=== PATIENT | male | born 1940 | race Caucasian/White ===

== ENCOUNTER → 2016-07-22 | Outpatient (CLI) | payer MEDICARE ==
[2016-07-22 13:35] LABS: Blood Urea Nitrogen 43 mg/dL (9-20); Non-African American GFR(MDRD) 58 (>60 ml/min/1.73 sqM)
--- NOTE | 2016-07-22 16:42 | CT ---
EXAMINATION TYPE: CT abdomen pelvis w con DATE OF EXAM: 07/22/2016 2:55 PM COMPARISON: NONE INDICATION: Mid abd pain, History of colon and stomach CA, multiple hernia surgeries DLP: 1374.7 mGycm, Automated exposure control for dose reduction was used. CONTRAST: 100 mL of Omnipaque 300. Study performed with Oral Contrast TECHNIQUE: Axial images were obtained from above the diaphragm to the pubic rami in the axial plane a t 5 mm thick sections. Reconstructed images are reviewed on the computer in the coronal plane. FINDINGS: Limited CT sections are obtained the lung bases. The lung bases are clear. CT ABDOMEN: Liver: Normal Spleen: Normal Pancreas: Normal Adrenal glands: The adrenal glands are normal. Gallbladder: Gallstones appear to be layering. Kidneys: No masses are evident. No hydronephrosis is present. Cortical renal cysts present on the l eft kidney. Delayed images were obtained through the kidneys, which remain unremarkable. Aorta: Vascular calcification is within the aorta. Inferior vena cava: Normal. CT PELVIS: Loops of bowel within the abdomen and pelvis are normal. There are loops of bowel which are incom pletely distended or lack oral contrast limiting their evaluation. Midline pelvic herniation is prese nt with multiple loops of bowel present. Contrast is within loops of bowel without evidence of obstru ction or dilatation. A second herniation appears to be just right of midline within the periumbilical region. This contains a loop of bowel containing contrast without evidence of obstruction. Prior abdominal wall hernia repair may be present along the epigastric region. A small seroma may rem ain present. Correlate with the patient's surgical history. Multiple surgical clips deep to this cnostantine ection. This appears to measure 2.5 x 0.6 cm. Appendix: Not identified Urinary bladder: Normal. Genitourinary structures: Osseous structures: No suspicious lytic or sclerotic lesions. Multiple degenerative disc changes at t he lumbar spine. Vacuum disc is present. IMPRESSIONS: 1. Anterior abdominal wall hernias containing loops of bowel without evidence of obstruction. 2. Suspected seroma anterior abdominal wall here superficial to multiple surgical clips in right uppe r quadrant. 3. Cortical renal cyst 4. Gallstones
== END | disposition home or self-care (01) ==
LOC: RADCTMAIN 12:11
PROVIDERS: ATTEND Surgery
DX: K46.9 Unspecified abdominal hernia without obstruction or gangrene (principal); N28.1 Cyst of kidney, acquired; K80.20 Calculus of gallbladder without cholecystitis without obstruction; E66.01 Morbid (severe) obesity due to excess calories; D50.8 Other iron deficiency anemias; E55.9 Vitamin D deficiency, unspecified; Z48.815 Encounter for surgical aftercare following surgery on the digestive system; Z98.84 Bariatric surgery status
CPT/HCPCS: 82565; 84520; 74177; Q9967

== ENCOUNTER → 2016-07-26 | Outpatient (CLI) | payer MEDICARE ==
[2016-07-26 11:28] LABS: HCT 31.7 % (39.0-53.0); HDW 2.24; HGB 10.4 gm/dL (13.0-17.5); MCH 32.8 pg (25.0-35.0); MCHC 32.6 g/dL (31.0-37.0); MCV 100.5 fL (80.0-100.0); Macrocytosis Slight; Mean Platelet Volume 8.1; RBC 3.16 m/uL (4.30-5.90); RDW 14.1 % (11.5-15.5); WBC 3.9 k/uL (3.8-10.6)
[2016-07-26 12:33] LABS: ALT 47 U/L (21-72); AST 42 U/L (17-59); Alkaline Phosphatase 86 U/L (38-126); Anion Gap 8 mmol/L; Blood Urea Nitrogen 35 mg/dL (9-20); Calcium 9.1 mg/dL (8.4-10.2); Carbon Dioxide 27 mmol/L (22-30); Chloride 105 mmol/L (98-107); Cholesterol 169 mg/dL (<200); Glucose 96 mg/dL (74-99); HDL Cholesterol 61 mg/dL (40-60); Iron 64 ug/dL (49-181); Non-African American GFR(MDRD) >60 (>60 ml/min/1.73 sqM); Phosphorous 3.6 mg/dL (2.5-4.5); Potassium 4.3 mmol/L (3.5-5.1); Sodium 140 mmol/L (137-145); Total Bilirubin 0.5 mg/dL (0.2-1.3); Total Protein 6.2 g/dL (6.3-8.2); Triglycerides 67 mg/dL (<150)
[2016-07-26 12:45] LABS: Prealbumin 20 mg/dL (18-36); Total Iron Binding Capacity 298 ug/dL (261-462)
[2016-07-26 13:44] LABS: Vitamin B12 763 pg/mL
[2016-07-31 18:15] LABS: Selenium 162 mcg/L (63-160)
== END | disposition home or self-care (01) ==
LOC: LABWHC1 10:23
PROVIDERS: ATTEND Surgery
DX: D50.8 Other iron deficiency anemias (principal); E55.9 Vitamin D deficiency, unspecified
CPT/HCPCS: 36415; 80053; 80061; 82306; 82525; 82607; 82728; 82746; 83036; 83540; 83550; 83735; 83970; 84100; 84134; 84255; 84425; 84590; 84630; 85027

== ENCOUNTER → 2016-10-13 | Outpatient (CLI) | payer MEDICARE ==
[2016-10-13 17:35] LABS: CH 31.7; CHCM 31.7; HDW 2.36; HGB 10.3 gm/dL (13.0-17.5); MCH 33.4 pg (25.0-35.0); MCHC 33.2 g/dL (31.0-37.0); MCV 100.5 fL (80.0-100.0); Macrocytosis Slight; Mean Platelet Volume 9.4; RBC 3.09 m/uL (4.30-5.90)
[2016-10-13 18:29] LABS: Anion Gap 7 mmol/L; Blood Urea Nitrogen 38 mg/dL (9-20); Carbon Dioxide 28 mmol/L (22-30); Chloride 100 mmol/L (98-107); Non-African American GFR(MDRD) >60 (>60 ml/min/1.73 sqM); Potassium 4.2 mmol/L (3.5-5.1); Sodium 135 mmol/L (137-145)
== END | disposition home or self-care (01) ==
LOC: LABPAT 17:10
PROVIDERS: ATTEND Internal Medicine Interventional Cardiology
DX: Z01.812 Encounter for preprocedural laboratory examination (principal); I70.213 Atherosclerosis of native arteries of extremities with intermittent claudication, bilateral legs
CPT/HCPCS: 80051; 82565; 84520; 85027

== ENCOUNTER 2016-10-15 06:33 | Day surgery (SDC) | payer MEDICARE ==
[2016-10-13 17:44] VITALS: BMI 39.8
[~2016-10-15 06:33] MED LIST: SODIUM CHLORIDE 0.9% 1,000 ML in EMPTY BAG 1 BAG IV ONE
[2016-10-15 07:11] VITALS: TEMP 98.4
[2016-10-15] MEDS ORDERED: ASPIRIN 325 MG TAB PO ONE (07:23)
[2016-10-15] MEDS ORDERED: SODIUM CHLORIDE 0.9% 50 ML IV ONE (07:25)
[2016-10-15] MEDS ORDERED: MIDAZOLAM 2 MG/2 ML VIAL ONE (07:40)
[2016-10-15] MEDS ORDERED: MIDAZOLAM 2 MG/2 ML VIAL IV ONE (07:41)
[2016-10-15] MEDS ORDERED: LIDOCAINE 2% INJ 20 MG/ML SQ ONE (07:50)
[2016-10-15] MEDS ORDERED: IODIXANOL 320 MG/ML 100 ML INTRAARTER ONE (08:27)
[2016-10-15] MEDS ORDERED: SODIUM CHLORIDE 0.9% 1,000 ML IV SCH (08:45)
[2016-10-15 12:41] VITALS: RESP 18
[2016-10-15 13:06] VITALS: BP 142/77; PULSE 82
--- NOTE | 2016-10-15 14:37 | IR ---
EXAMINATION TYPE: IR angio abdominal w runoff DATE OF EXAM: 10/15/2016 8:43 AM CLINICAL HISTORY: Peripheral vascular disease. TECHNIQUE: Fluoroscopy. COMPARISON: None. FINDINGS: Fluoroscopic guidance was provided during abdominal angiogram with lower extremity runoff procedure performed by Dr. Stroud. A total of 5.4 minutes of fluoroscopic time was utilized during the procedure and multiple spot images and cine clips was acquired. Please refer to procedure note for f urther details as I was not present nor performed procedure. IMPRESSION: As Above.
--- NOTE | 2016-10-15 15:42 | LTR ---
October 15, 2016 RE: Deepti Jeferson Dear Brody, Mr. Jeferson Tatum was experiencing bilateral lower extremity discomfort consistent with claudication, and he underwent an CORY which had abnormal results bilaterally. In view of that, he underwent a peripheral angiogram which showed severe PAD involving the left popliteal and right anterior tibial artery. He will be scheduled to undergo a FLOUR INSPECTOR of the left popliteal to start with. I want to thank you for allowing me to participate with his care; please do not hesitate to call with any questions or concerns. Sincerely, JACQUI RODAS MD
--- NOTE | 2016-10-15 16:07 | PCN ---
DATE OF PROCEDURE: October 15, 2016 Performing physician: Mayo Stroud M.D., manager sharepoint. PROCEDURE PERFORMED: 1. An abdominal aortogram. 2. Bilateral lower extremity runoff. 3. Selective left external iliac artery angiogram. 4. Selective right common femoral artery angiogram. INDICATION: This is a very pleasant 76-year-old gentleman who sees Dr. Harry Parnell as an outpatient and Dr. Swift as an outpatient, who was experiencing bilateral lower extremity discomfort consistent with intermittent claudication and he underwent an ankle brachial index which came in to be abnormal bilaterally. He was scheduled to undergo an abdominal aortogram and bilateral for severe underlying PAD. Approach: Right common femoral artery. COMPLICATIONS: None. Level of sedation: Moderate. With sedation length about half an hour. PROCEDURE DESCRIPTION: After obtaining informed consent, the patient was brought to the cardiac medical laboratory scientist. The right common femoral artery was cannulated using micropuncture technique. Micropuncture wire passed easily. Then I placed 5 Montserratian sheath in the right common femoral artery. Subsequently, I did an abdominal aortogram and bilateral lower extremity runoff. I performed that using 5 Montserratian pigtail catheter which was initially placed at the level of the renal arteries and then it was pulled above the bifurcation of the aorta to right and left common iliac arteries. Subsequently, I did select the left external iliac artery using a 5 Montserratian rim catheter with an 0.035 advantage wire and I did injection using straight multihole catheter. The procedure was completed without any complication. SELECTIVE PERIPHERAL ANGIOGRAM: 1. The abdominal aorta is angiographically normal. 2. Common iliac arteries: The right and left common iliac arteries are angiographically normal. 3. External iliac arteries the right and left external iliac arteries are angiographically normal. 4. The internal iliac arteries: The right and left internal iliac arteries are angiographically normal. 5. Common femoral arteries. The right and left common femoral arteries are angiographically normal. PROFUNDA: The right and left profunda are angiographically normal SUPERFICIAL FEMORAL ARTERY: The right SFA appeared to have mild diffuse disease only and the left SFA appeared to have mild disease only as well. Popliteal: The right popliteal did appear to have mild disease only. The left popliteal appeared to have a lesion in the range of 70% to 80%. Below the knee there are vessel runoff below the knee on the right side with 80 and peroneal. The ( ) is occluded. The ( ) on the right side has a lesion appeared to be in the range of 80% to 90%. On the left side there are also two vessel run off what seems to me with AP and peroneal. Opacification of below the knee on the left side was poor and I will address that during intervention on the right popliteal. CONCLUSION: 1. Mild aortoiliac disease. 2. Severe disease involving the popliteal artery. 3. Severe disease involving the right anterior tibial artery. POSTPROCEDURE MANAGEMENT: The patient will be scheduled to undergo a GRASSLAND CONSERVATIONIST of the left popliteal.
== END 2016-10-15 13:50 | disposition home or self-care (01) ==
LOC: CATHCVL 06:33
PROVIDERS: ATTEND Internal Medicine Interventional Cardiology
DX: I70.213 Atherosclerosis of native arteries of extremities with intermittent claudication, bilateral legs (principal); I70.0 Atherosclerosis of aorta; Z87.891 Personal history of nicotine dependence; I10 Essential (primary) hypertension; Z79.82 Long term (current) use of aspirin; Z79.899 Other long term (current) drug therapy
CPT/HCPCS: 36246; 75625; 75716; C1894; C1769 ×4; C1760; J2001; J2250; Q9967

== ENCOUNTER 2016-10-29 08:04 | Day surgery (SDC) | payer MEDICARE ==
[~2016-10-29 08:04] MED LIST changes: +ALPRAZolam 0.25 MG TAB PO PRN; +ASPIRIN 325 MG TAB PO ONE
[2016-10-29] MEDS: SODIUM CHLORIDE 0.9% 1,000 ML IV SCH ×2 (08:35→19:56)
[2016-10-29] MEDS ORDERED: MIDAZOLAM 2 MG/2 ML VIAL IVP ONE (09:46)
[2016-10-29] MEDS ORDERED: LIDOCAINE 2% INJ 20 MG/ML SQ ONE (09:48)
[2016-10-29] MEDS ORDERED: HEPARIN SODIUM 1,000 UNIT/ML VIAL IV ONE (09:51)
[2016-10-29] MEDS ORDERED: CLOPIDOGREL 75 MG TAB PO ONE (10:22)
[2016-10-29] MEDS: niCARdipine Syringe (1,000 mcg/10 mL) INTRACORON ONE ×2 (10:24→10:27)
[2016-10-29] MEDS: NITROGLYCERIN 1000MCG/10ML SYRINGE INTRAARTER ONE ×2 (10:24→10:27)
[2016-10-29] MEDS ORDERED: IODIXANOL 320 MG/ML 100 ML INTRAARTER ONE (10:35)
[2016-10-29] MEDS ORDERED: HYDROcodone/APAP 10-325MG 1 EACH TAB PO PRN (10:39)
--- NOTE | 2016-10-29 12:41 | IR ---
EXAMINATION TYPE: IR shrimp boat captain femoral popliteal DATE OF EXAM: 10/29/2016 11:04 AM COMPARISON: NONE HISTORY: Peripheral vascular occlusive disease. Fluoroscopy was provided to the referring clinician. See dictated report from cardiology.
--- NOTE | 2016-10-29 17:44 | PCN ---
DATE OF PROCEDURE: October 29, 2016 PERFORMING PHYSICIAN: Mayo Stroud M.D. applications chemist. PROCEDURE PERFORMED: 1. Selective left [id number] angiogram. 2. Selective left popliteal angiogram. 3. Atherectomy of the left popliteal artery using the turbo hock device. 4. Atherectomy of the left popliteal artery using the turbo hock device with extraction of significant amount of plaque. 5. Successful balloon angioplasty of the left popliteal using 5.0 x 60 mm drug-coated balloon with a good angiographic results. 6. Selective right common femoral artery angiogram. INDICATION: This is a pleasant 76-year-old gentleman who sees Dr. Harry Parnell and Dr. Swift as an outpatient, who was experiencing bilateral lower extremity discomfort consistent with intermittent claudication. He underwent a peripheral angiogram a few weeks ago and that showed severe left popliteal artery and severe right anterior tibial artery. He was brought today to undergo a HOME APPLIANCES MECHANIC of the left popliteal. Approach: Right common femoral artery. COMPLICATIONS: None. LEVEL OF SEDATION: Moderate with sedation length of about an hour. PROCEDURE DESCRIPTION: After obtaining an informed consent, the patient was brought to the cardiac woven label designer. Right common femoral artery was cannulated using micropuncture technique. The micropuncture wire passed easily, then I placed an 11 cm 6 Beninese sheath in the right common femoral artery. Subsequently, I did start anticoagulation using heparin and the patient was given a total of 10,000 units of heparin IV. After that, I did select the left SFA using an 0.035 advantage wire with the back-up support of 5 Beninese rim catheter. After that, I did exchange my 11 cm 6 Beninese sheath into 55 cm 6 Beninese Rabi sheath over the advantage wire and the sheath was positioned in the proximal left SFA. At that point, I did selective left [id number] angiogram and selective left popliteal angiogram as well. After that, I exchanged my 0.035 advantage wire into 0.014 advantage wire using an 0.035 CXI catheter. Subsequently, I did multiple runs of directional atherectomy using the CXI using the Turbo hock device and I was able to extract a significant amount of plaque from the left popliteal artery. After that, I did balloon angioplasty initially using 4.0 x 60 and then 5.0 x 6 mm drug-coated balloon, where the balloon was positioned under fluoroscopy guidance and inflated for 3 minutes. The following angiogram showed good angiographic results. I did completion angiogram for below the knee on the left side and that showed the same findings as before. After that, I did exchange my 55 cm sheath into 11 cm sheath using an 0.035 advantage wire. Finally, I did selective right common femoral artery angiogram. I did close the groin using the Perclose device. The procedure was completed without any complication. POSTPROCEDURE MANAGEMENT: 1. Dual antiplatelet therapy. 2. Risk factor medications. 3. HOME APPLIANCES MECHANIC of the right anterior tibial artery down the line.
--- NOTE | 2016-10-29 17:46 | LTR ---
October 29, 2016 RE: Deepti Jeferson Dear Brody: Mr. Jeferson Tatum underwent successful atherectomy and balloon angioplasty of the left popliteal with a good angiographic result and without any complication. I want to thank you for allowing me to participate in his care and please do not hesitate to call for any question or concerns. Sincerely, JACQUI RODAS MD
[2016-10-29] MEDS: COLCHICINE 0.6 MG TAB PO SCH (19:55)
[2016-10-29] MEDS ORDERED: PRAVASTATIN SODIUM 40 MG TAB PO SCH (21:00)
[2016-10-30 06:32] LABS: Basophils % (A) 1 %; CH 32.5; CHCM 32.5; Eosinophils # (A) 0.1 k/uL (0-0.7); Eosinophils % (A) 3 %; HCT 30.7 % (39.0-53.0); HDW 2.41; HGB 9.8 gm/dL (13.0-17.5); Luc # (Auto) 0.14; Luc % (Auto) 4; Lymphocytes # (A) 1.1 k/uL (1.0-4.8); Lymphocytes % (A) 28 %; MCH 32.1 pg (25.0-35.0); MCHC 31.9 g/dL (31.0-37.0); MCV 100.6 fL (80.0-100.0); Macrocytosis Slight; Mean Platelet Volume 7.8; Monocytes # (A) 0.3 k/uL (0-1.0); Monocytes % (A) 7 %; Neutrophils # (A) 2.3 k/uL (1.3-7.7); Neutrophils % (A) 58 %; RBC 3.05 m/uL (4.30-5.90); RDW 14.4 % (11.5-15.5); WBC (Perox) 4.19
[2016-10-30 06:36] LABS: Anion Gap 4 mmol/L; Blood Urea Nitrogen 31 mg/dL (9-20); Calcium 9.1 mg/dL (8.4-10.2); Carbon Dioxide 25 mmol/L (22-30); Chloride 109 mmol/L (98-107); Glucose 180 mg/dL (74-99); Non-African American GFR(MDRD) >60 (>60 ml/min/1.73 sqM); Potassium 4.9 mmol/L (3.5-5.1); Sodium 138 mmol/L (137-145)
[2016-10-30] MEDS ORDERED: LISINOPRIL 20 MG TAB PO SCH (09:00)
[2016-10-30] MEDS ORDERED: CLOPIDOGREL 75 MG TAB PO SCH (09:00)
[2016-10-30] MEDS ORDERED: ASPIRIN 325 MG TAB PO SCH ×2 (09:00)
[2016-10-30] MEDS ORDERED: FUROSEMIDE 40 MG TAB PO SCH (09:00)
[2016-10-30] MEDS ORDERED: FAMOTIDINE 20 MG TAB PO SCH (09:00)
[2016-10-30] MEDS ORDERED: METOPROLOL TARTRATE 12.5 MG TAB PO SCH (09:00)
[2016-10-30] MEDS ORDERED: ALLOPURINOL 300 MG TAB PO SCH (09:00)
[2016-10-30] MEDS: COLCHICINE 0.6 MG TAB PO SCH (09:01)
[2016-10-30 09:17] VITALS: BP 126/95; PULSE 83; RESP 16; TEMP 97.7
[2016-10-30] MEDS ORDERED: MULTIVITAMINS, THERA 1 EACH TAB PO SCH (12:00)
[2016-10-30] MEDS ORDERED: FERROUS SULFATE 325 MG TAB PO SCH (12:00)
[2016-10-30 12:05] VITALS: BMI 43.3
--- NOTE | 2016-11-01 08:47 | DS ---
DATE OF ADMISSION: 10/29/2016 DATE OF DISCHARGE: 10/30/2016 BRIEF HISTORY: This is a pleasant 76-year-old gentleman who sees Dr. Parnell and Dr. Swift as an outpatient, who was admitted to the hospital on October 29 and underwent successful atherectomy as well as balloon angioplasty of the left popliteal artery with a good angiographic result and without any complication. The procedure was performed from the right groin, which is soft and nontender and without any bruises. The patient is going to be discharged home on dual antiplatelet therapy and I will follow up with the patient as an outpatient in the office.
== END 2016-10-30 13:19 | disposition home or self-care (01) ==
LOC: CATHCVL 08:04 → 6SEL 10:34 → CATHCVL 10-30 13:19
PROVIDERS: ATTEND Internal Medicine Interventional Cardiology
DX: I70.212 Atherosclerosis of native arteries of extremities with intermittent claudication, left leg (principal); Z87.891 Personal history of nicotine dependence; I10 Essential (primary) hypertension; Z79.82 Long term (current) use of aspirin; Z79.899 Other long term (current) drug therapy
CPT/HCPCS: 37225; 80048; 85025; 99152; 99153 ×3; C1769 ×6; C1894 ×2; C1725; C1714; C2623; C1760; J2001; J2250; Q9967; J1644

== ENCOUNTER → 2016-12-11 | Outpatient (CLI) | payer MEDICARE ==
[2016-12-11 13:39] LABS: Basophils % (A) 1 %; CH 32.9; Eosinophils # (A) 0.1 k/uL (0-0.7); Eosinophils % (A) 3 %; HCT 32.3 % (39.0-53.0); HDW 2.36; HGB 10.7 gm/dL (13.0-17.5); Luc # (Auto) 0.17; Luc % (Auto) 4; Lymphocytes % (A) 26 %; MCH 33.1 pg (25.0-35.0); MCHC 33.1 g/dL (31.0-37.0); Macrocytosis Slight; Mean Platelet Volume 8.5; Monocytes # (A) 0.2 k/uL (0-1.0); Monocytes % (A) 6 %; Neutrophils # (A) 2.3 k/uL (1.3-7.7); Neutrophils % (A) 60 %; RBC 3.23 m/uL (4.30-5.90); RDW 14.8 % (11.5-15.5); WBC 3.8 k/uL (3.8-10.6); WBC (Perox) 3.81
[2016-12-11 13:46] LABS: Anion Gap 9 mmol/L; Blood Urea Nitrogen 45 mg/dL (9-20); Carbon Dioxide 26 mmol/L (22-30); Chloride 100 mmol/L (98-107); Non-African American GFR(MDRD) 56 (>60 ml/min/1.73 sqM); Potassium 4.6 mmol/L (3.5-5.1); Sodium 135 mmol/L (137-145)
== END | disposition home or self-care (01) ==
LOC: LABPAT 13:05
PROVIDERS: ATTEND Internal Medicine Interventional Cardiology
DX: Z01.812 Encounter for preprocedural laboratory examination (principal); I73.9 Peripheral vascular disease, unspecified
CPT/HCPCS: 80051; 82565; 84520; 85025

== ENCOUNTER 2016-12-15 06:18 | Day surgery (SDC) | payer MEDICARE ==
[2016-12-15] MEDS ORDERED: SODIUM CHLORIDE 0.9% 1,000 ML in EMPTY BAG 1 BAG IV ONE (06:19)
[2016-12-15] MEDS ORDERED: ALPRAZolam 0.25 MG TAB ONE (06:35)
[2016-12-15] MEDS ORDERED: ASPIRIN 81 MG CHEW ONE (06:35)
[2016-12-15] MEDS ORDERED: MIDAZOLAM 2 MG/2 ML VIAL IV ONE (07:45)
[2016-12-15] MEDS ORDERED: LIDOCAINE 2% INJ 20 MG/ML SQ ONE (07:55)
[2016-12-15] MEDS ORDERED: HEPARIN SODIUM 1,000 UNIT/ML VIAL IV ONE (08:00)
[2016-12-15] MEDS ORDERED: fentaNYL (PF) 50 MCG/ML 2 ML AMP IV ONE (08:00)
[2016-12-15] MEDS: NITROGLYCERIN 1000MCG/10ML SYRINGE INTRAARTER ONE ×3 (08:41→09:01)
[2016-12-15] MEDS: niCARdipine Syringe (1,000 mcg/10 mL) INTRAARTER ONE ×3 (08:41→09:01)
[2016-12-15] MEDS ORDERED: IODIXANOL 320 MG/ML 100 ML INTRAARTER ONE (09:14)
[2016-12-15] MEDS ORDERED: HYDROcodone/APAP 10-325MG 1 EACH TAB PO PRN (09:19)
[2016-12-15] MEDS ORDERED: CLOPIDOGREL 75 MG TAB PO ONE (09:21)
[2016-12-15] MEDS ORDERED: SODIUM CHLORIDE 0.9% 1,000 ML IV SCH (09:30)
[2016-12-15 09:54] VITALS: BMI 39.6
[2016-12-15 11:47] LABS: Glucose,Whole Blood 89 mg/dL (75-99)
[2016-12-15 16:39] LABS: Glucose,Whole Blood 119 mg/dL (75-99)
--- NOTE | 2016-12-15 20:35 | PCN ---
DATE OF PROCEDURE: December 15, 2016. Performing physician: Mayo Stroud M.D., granite countertop installer. PROCEDURE PERFORMED: 1. Selective right anterior tibial artery angiogram. 2. An atherectomy of the right anterior tibial artery using the CSI orbital atherectomy device. 3. Successful balloon angioplasty of the right anterior tibial using 2.0 and 2.5 mm balloon with a good angiographic results. 4. Selective left common femoral artery angiogram. INDICATION: This is a pleasant 76-year-old gentleman who sees Dr. Swift as an outpatient, who was experiencing right leg discomfort consistent with intermittent claudication. He underwent a peripheral angiogram which showed critical right anterior tibial artery, which seems to be in the range of 90% to 95%. He was brought today to undergo an intervention on it. Approach: Left common femoral artery. COMPLICATIONS: None. Level of sedation: Moderate with sedation length of an hour and 20 minutes. PROCEDURE DESCRIPTION: After obtaining informed consent, the patient was brought to the cardiac clinical laboratory service teacher. The left common femoral artery was cannulated using micropuncture technique. The micropuncture wire passed easily. Then I placed a 6 Sierra Leonean sheath 11 cm in the left common femoral artery. At that point, anticoagulation was initiated using heparin and the patient was given 10,000 units of heparin IV. Subsequently, I did select the left superficial femoral artery using a 5 [place] Leonean rim catheter with 0.35 advantage wire. After that, I did exchange my 11 cm, 6 [place] Leonean sheath into 90 cm 6 Sierra Leonean sheath over the advantage wire. After that, I did wire the right anterior tibial artery using an 014 advantage wire with the back-up support of 0.014 QuickCross catheter. Subsequently, I did exchange my 0.014 advantage wire into 0.014 ViperWire preparing orbital atherectomy. I did atherectomy of the right anterior tibial artery using a low and medium speeds. Before that, I did selective right anterior tibial artery angiogram to locate the lesion. After that I did angioplasty over the ViperWire where initially I used 2.0 x 30 mm and then two 5 x 30 mm balloon and both balloons were inflated under for 12 atmospheres for one minute. The following angiogram showed good angiographic results with reduction of stenosis from 99% to 30 to 40%. The procedure was completed without any complication. After that, I did exchange my 90 cm 6 Sierra Leonean sheath into 11 cm 6 [place] Leonean sheath using the advantage wire. After that, the procedure was completed without any complication. POSTPROCEDURE MANAGEMENT: 1. Dual antiplatelet therapy. 2. Risk factor modifications. 3. Follow up with the patient.
--- NOTE | 2016-12-15 20:46 | LTR ---
December 15, 2016 RE: Jeferson Tatum Dear Brody, Mr. Jeferson Tatum underwent successful atherectomy and balloon angioplasty of the right anterior tibial artery with good angiographic results and without any complication. Thank you for allowing me to participate in his care. Please do not hesitate to call if you have any question or concern. Sincerely, JACQUI RODAS MD
[2016-12-15 20:48] LABS: Glucose,Whole Blood 113 mg/dL (75-99)
[2016-12-15] MEDS: COLCHICINE 0.6 MG TAB PO SCH (21:59)
[2016-12-16 04:56] VITALS: RESP 20
[2016-12-16 05:47] LABS: Glucose,Whole Blood 126 mg/dL (75-99)
[2016-12-16 06:17] LABS: Aty Lym Flag Slight; CH 32.6; CHCM 31.6; HCT 30.3 % (39.0-53.0); HDW 2.14; HGB 9.4 gm/dL (13.0-17.5); MCH 32.2 pg (25.0-35.0); MCHC 31.1 g/dL (31.0-37.0); MCV 103.6 fL (80.0-100.0); Macrocytosis Slight; Mean Platelet Volume 8.9; RBC 2.93 m/uL (4.30-5.90); WBC 2.7 k/uL (3.8-10.6); WBC (Perox) 2.93
[2016-12-16 06:22] LABS: Anion Gap 6 mmol/L; Blood Urea Nitrogen 35 mg/dL (9-20); Calcium 8.9 mg/dL (8.4-10.2); Carbon Dioxide 25 mmol/L (22-30); Chloride 109 mmol/L (98-107); Glucose 124 mg/dL (74-99); Non-African American GFR(MDRD) >60 (>60 ml/min/1.73 sqM); Potassium 4.7 mmol/L (3.5-5.1); Sodium 140 mmol/L (137-145)
[2016-12-16 07:52] LABS: Add Differential Manual Differential
[2016-12-16 08:05] LABS: Nucleated Red Blood Cells 0 /100 WBC (0-0); Total Cells Counted 100
[2016-12-16 08:06] LABS: Manual Review Performed
[2016-12-16] MEDS ORDERED: FUROSEMIDE 40 MG TAB PO SCH (09:00)
[2016-12-16] MEDS ORDERED: FERROUS SULFATE 325 MG TAB PO SCH (09:00)
[2016-12-16] MEDS ORDERED: ALLOPURINOL 300 MG TAB PO SCH (09:00)
[2016-12-16] MEDS ORDERED: FAMOTIDINE 20 MG TAB PO SCH (09:00)
[2016-12-16] MEDS ORDERED: LISINOPRIL 20 MG TAB PO SCH (09:00)
[2016-12-16] MEDS ORDERED: ASPIRIN 81 MG CHEW PO SCH (09:00)
[2016-12-16] MEDS ORDERED: CLOPIDOGREL 75 MG TAB PO SCH (09:00)
[2016-12-16] MEDS: COLCHICINE 0.6 MG TAB PO SCH (09:06)
[2016-12-16 09:09] VITALS: BP 134/62; PULSE 79; TEMP 98.4
[2016-12-16] MEDS ORDERED: MULTIVITAMINS, THERA 1 EACH TAB PO SCH (12:00)
--- NOTE | 2016-12-16 12:17 | DS ---
DATE OF ADMISSION: 12/15/2016 DATE OF DISCHARGE: 12/16/2016 BRIEF HISTORY: This is a pleasant 76-year-old gentleman who sees Dr. Harry Parnell as an outpatient, who was admitted yesterday to the hospital and underwent successful balloon angioplasty of the right anterior tibial artery with a good angiographic result and without any completion. The procedure was performed from the left groin. The left groin is soft and nontender and without any bruises. The patient is going to be discharged home on dual antiplatelet therapy and I will follow up with the patient as an outpatient in the office.
[2016-12-16] MEDS ORDERED: ATORVASTATIN 20 MG TAB PO SCH (21:00)
--- NOTE | 2016-12-17 08:21 | IR ---
EXAMINATION TYPE: IR patrol captain femoral popliteal DATE OF EXAM: 12/15/2016 COMPARISON: NONE HISTORY: Peripheral vascular occlusive disease. Fluoroscopy was provided to the referring clinician. See dictated report from cardiology.
== END 2016-12-16 11:19 | disposition home or self-care (01) ==
LOC: CATHCVL 06:18 → 6SEL 09:07 → CATHCVL 12-16 11:19
PROVIDERS: ATTEND Internal Medicine Interventional Cardiology
DX: I70.213 Atherosclerosis of native arteries of extremities with intermittent claudication, bilateral legs (principal); I10 Essential (primary) hypertension; Z79.02 Long term (current) use of antithrombotics/antiplatelets; Z79.82 Long term (current) use of aspirin; Z79.899 Other long term (current) drug therapy; E78.5 Hyperlipidemia, unspecified; Z87.891 Personal history of nicotine dependence
CPT/HCPCS: 37229; 80048; 85025; 99152; 99153 ×4; C1894 ×2; C1725 ×2; C1714; C1769 ×5; C1887; C1760; J2001; J2250; Q9967; J3010; J1644

== ENCOUNTER 2017-03-05 06:59 | Day surgery (SDC) | payer MEDICARE ==
[2017-03-04 10:31] VITALS: BMI 39.8
[~2017-03-05 06:59] MED LIST changes: -ALPRAZolam 0.25 MG TAB PO PRN; -ASPIRIN 325 MG TAB PO ONE; +LACTATED RINGERS 1,000 ML IV SCH; +LIDOCAINE 1% 20 ML VIAL (10MG/ML) FOR IV START INTRADERMA PRN; -SODIUM CHLORIDE 0.9% 1,000 ML in EMPTY BAG 1 BAG IV ONE
[2017-03-05 07:21] VITALS: TEMP 97.4
[2017-03-05 07:34] LABS: Glucose,Whole Blood 93 mg/dL (75-99)
[2017-03-05] MEDS ORDERED: PROPOFOL 10 MG/ML 20 ML VIAL IV ONE (07:45)
[2017-03-05] MEDS ORDERED: LIDOCAINE 1% INJ 10MG/ML (20 ML MDV) ONE (07:45)
--- NOTE | 2017-03-05 08:24 | P.OP ---
Date of Procedure: 03/05/17 Preoperative Diagnosis: anemia with melena h/o sleeve? 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 exposed stitches from previous suture lines on the lesser curve Descending colon polyp Sigmoid colon polyp Internal hemorrhoids Procedure(s) Performed: EGD with biospy with Cold biopsy forceps Colonscopy Implants: Anesthesia: SHAHIDA Surgeon: Panchito Hussein Pathology: other Condition: stable Disposition: PACU Indications for Procedure: Operative Findings: Gastro gastric fistula as with hulcer and mass in the pylorus. Colon polyps Description of Procedure: Patient is a 76-year-old gentleman whose had a gastric sleeve in the past we are not sure whether it's asleep hysterectomy of vertical banded gastroplasty. He presents with known history of melena. He's also had transverse colon cancer. After obtaining informed consent patient was brought to the endoscopy suite placed in left lateral decubitus position and appropriate appropriate timeout light sedation was administered as well as amount that was placed. A well-lubricated scope was passed through the mouth To the mouth all the way down into the esophagus traversing into the large hiatal hernia that hadn't with the asymmetry. Symmetrical the stomach which was sleeve-like. The scope was then advanced into the antrum and then there were 2 openings seen at the level of the pylorus one was traversable into the small bowel and the other one was not. There was healed ulcer with a heaped up mass-like features between them that was biopsied. The scope was then advanced into the small bowel biopsy was taken from the duodenum on withdrawing the biopsies were taken from around the whole 2 openings from the GG fistula as well as the pylorus. Further biopsies were taken along the lesser curvature were exposed stitches were found as well. These were also biopsied. Another fistula was seen 5 cm distal to the GE junction and was not traversable it was less than 5 mm in diameter. Scope was then withdrawn into the hiatal hernia with the GE junction was biopsied. The patient is a large hiatal hernia which is not signing. Scope was then withdrawn to the stomach. After this the patient's position was changed for a colonoscopy. Perianal examination did not reveal any external hemorrhoids. He has a reduced sphincter tone. Digital rectal examination was performed. A well-lubricated endoscope was passed per rectally and was gradually advanced beyond the sigmoid colon, splenic flexure, transverse colon, hepatic flexure and cecum. The ileocecal valve was visualized. Scope was gradually withdrawn inspecting all the mucosal surfaces. A polyp was seen in the descending colon and biopsied and completely removed with the help of a cold biopsy forceps. Another polyp was seen in the sigmoid colon and was removed with the help of a cold biopsy forceps. Bowel prep was poor. No other polyps or masses noted. Retroflexed in the rectum and large internal hemorrhoid was noted which was not bleeding at this time. The scope was gradually withdrawn. Patient tolerated the procedure well and was taken to post anesthesia care unit in stable condition. Recommend repeat colonoscopy in 2 years. due to poor prep
[2017-03-05] MEDS ORDERED: LACTATED RINGERS 1,000 ML IV ONE (08:26)
[2017-03-05 08:32] VITALS: RESP 18
[2017-03-05 08:46] VITALS: BP 129/60; PULSE 76
== END 2017-03-05 09:35 | disposition home or self-care (01) ==
LOC: ORWHC2ENDO 06:59
PROVIDERS: ATTEND Surgery
DX: K29.00 Acute gastritis without bleeding (principal); K29.90 Gastroduodenitis, unspecified, without bleeding; K21.0 Gastro-esophageal reflux disease with esophagitis; K44.9 Diaphragmatic hernia without obstruction or gangrene; D12.4 Benign neoplasm of descending colon; D12.5 Benign neoplasm of sigmoid colon; K64.8 Other hemorrhoids; Z85.038 Personal history of other malignant neoplasm of large intestine; E11.9 Type 2 diabetes mellitus without complications; Z79.84 Long term (current) use of oral hypoglycemic drugs; Z79.02 Long term (current) use of antithrombotics/antiplatelets; Z79.899 Other long term (current) drug therapy; Z91.09 Other allergy status, other than to drugs and biological substances
CPT/HCPCS: 88305; 88342; 45380; 43239; J2001; J2704

== ENCOUNTER → 2017-07-21 | Outpatient (CLI) | payer MEDICARE ==
[2017-07-21 17:41] LABS: HCT 33.7 % (39.0-53.0); HGB 10.7 gm/dL (13.0-17.5); MCH 31.6 pg (25.0-35.0); MCHC 31.6 g/dL (31.0-37.0); MCV 99.8 fL (80.0-100.0); Mean Platelet Volume 8.3; Platelet Count 186 k/uL (150-450); RBC 3.38 m/uL (4.30-5.90); RDW 13.2 % (11.5-15.5); WBC 3.8 k/uL (3.8-10.6)
[2017-07-21 17:50] LABS: ALT 53 U/L (21-72); AST 46 U/L (17-59); Albumin 3.6 g/dL (3.5-5.0); Alkaline Phosphatase 113 U/L (38-126); Anion Gap 12 mmol/L; Blood Urea Nitrogen 40 mg/dL (9-20); Calcium 9.7 mg/dL (8.4-10.2); Carbon Dioxide 29 mmol/L (22-30); Chloride 102 mmol/L (98-107); Cholesterol 105 mg/dL (<200); Glucose 96 mg/dL (74-99); HDL Cholesterol 49 mg/dL (40-60); INR 1.1 (<1.2); LDL Cholesterol,Calculated 39 mg/dL (0-99); Magnesium 1.8 mg/dL (1.6-2.3); Phosphorus 4.4 mg/dL (2.5-4.5); Potassium 4.9 mmol/L (3.5-5.1); Prothrombin Time 10.8 sec (9.0-12.0); Sodium 143 mmol/L (137-145); Total Bilirubin 0.3 mg/dL (0.2-1.3); Total Protein 6.5 g/dL (6.3-8.2); Triglycerides 84 mg/dL (<150)
[2017-07-21 17:51] LABS: Partial Thromboplastin Time 23.9 sec (22.0-30.0)
[2017-07-22 01:42] LABS: Iron Saturation 37.41 (15.00-50.00)
[2017-07-22 01:44] LABS: Parathyroid Hormone Intact 89.3 pg/mL (14.0-72.0); Vitamin D 25 Hydroxy 31.1 ng/mL (30.0-100.0)
[2017-07-22 01:55] LABS: Folate, Serum >24.0 ng/mL
[2017-07-23 11:25] LABS: Zinc, Serum 64 ug/dL (60-130)
[2017-07-24 05:36] LABS: Vitamin B1 34 ug/L (38-122)
[2017-07-24 06:46] LABS: Vitamin A 47 ug/dL (38-106)
[2017-07-24 17:40] LABS: Selenium 131 mcg/L (63-160)
== END | disposition home or self-care (01) ==
LOC: LABWHC1 16:32
PROVIDERS: ATTEND Surgery Plastic and Reconstructive Surgery
DX: E66.01 Morbid (severe) obesity due to excess calories (principal); E21.1 Secondary hyperparathyroidism, not elsewhere classified; D50.8 Other iron deficiency anemias; K90.89 Other intestinal malabsorption; E55.9 Vitamin D deficiency, unspecified; K74.1 Hepatic sclerosis; N19 Unspecified kidney failure; K50.90 Crohn's disease, unspecified, without complications; E89.1 Postprocedural hypoinsulinemia
CPT/HCPCS: 36415; 80053; 80061; 82306; 82525; 82607; 82728; 82746; 83036; 83540; 83550; 83735; 83970; 84100; 84134; 84255; 84425; 84443; 84590; 84630; 85027; 85610; 85730

== ENCOUNTER → 2017-09-22 | Outpatient (CLI) | payer MEDICARE | END | disposition home or self-care (01) | LOC: LABWHC1 12:31 | PROVIDERS: ATTEND Internal Medicine Rheumatology | DX: M10.00 Idiopathic gout, unspecified site (principal) | CPT/HCPCS: 36415; 82955 ==

== ENCOUNTER → 2017-11-23 | Outpatient (CLI) | payer MEDICARE | END | disposition home or self-care (01) | LOC: LABWHC1 16:24 | PROVIDERS: ATTEND Internal Medicine Rheumatology | DX: M10.00 Idiopathic gout, unspecified site (principal) | CPT/HCPCS: 36415; 84550 ==

== ENCOUNTER 2018-08-20 18:25 | Inpatient (IN) | payer MEDICARE ==
[2018-08-20] MEDS ORDERED: SODIUM CHLORIDE 0.9% 1,000 ML IV STA (21:02)
[2018-08-20 21:31] LABS: Partial Thromboplastin Time 23.1 sec (22.0-30.0); Prothrombin Time 10.9 sec (9.0-12.0)
[2018-08-20 21:32] LABS: HCT 36.1 % (39.0-53.0); HGB 11.6 gm/dL (13.0-17.5); MCH 30.9 pg (25.0-35.0); MCHC 32.1 g/dL (31.0-37.0); MCV 96.3 fL (80.0-100.0); Mean Platelet Volume 8.2; Platelet Count 191 k/uL (150-450); RBC 3.75 m/uL (4.30-5.90); RDW 12.8 % (11.5-15.5); WBC 8.9 k/uL (3.8-10.6)
[2018-08-20 21:37] LABS: Albumin 3.3 g/dL (3.5-5.0); Calcium 8.7 mg/dL (8.4-10.2); Magnesium 1.4 mg/dL (1.6-2.3); Potassium 4.5 mmol/L (3.5-5.1); Total Bilirubin 0.7 mg/dL (0.2-1.3); Total Protein 6.4 g/dL (6.3-8.2)
[2018-08-20 21:48] LABS: Band Neutrophils % 14 %; Lymphocytes # (M) 0.36 k/uL (1.0-4.8); Monocytes # (M) 0.18 k/uL (0-1.0); Neutrophils % (M) 80 %; Nucleated Red Blood Cells 0 /100 WBC (0-0); Total Cells Counted 100; Toxic Granulation Present
[2018-08-20 21:50] LABS: Creatine Kinase MB 1.7 ng/mL (0.0-2.4); Troponin I 0.02 ng/mL (0.000-0.034)
--- NOTE | 2018-08-20 21:58 | XR ---
EXAMINATION TYPE: XR chest 2V DATE OF EXAM: 08/20/2018 COMPARISON: NONE HISTORY: Chest pain TECHNIQUE: Frontal and lateral views of the chest are obtained. FINDINGS: Heart is normal. There is a coarse patchy infiltrate in the right lung. The left lung is f airly clear. There is left shoulder prosthesis. IMPRESSION: Patchy pneumonia in the right lung. No heart failure.
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
[2018-08-20] MEDS ORDERED: AZITHROMYCIN 500 MG TAB PO STA (23:11)
[2018-08-20] MEDS ORDERED: MAGNESIUM OXIDE 400 MG TAB PO STA (23:40)
[2018-08-20] MEDS ORDERED: LORazepam 2 MG/ML INJ IV PRN (23:42)
[2018-08-20] MEDS ORDERED: ACETAMINOPHEN TAB 325 MG TAB PO PRN (23:42)
[2018-08-20] MEDS ORDERED: NALOXONE 0.4 MG/ML 1 ML VIAL IV PRN (23:42)
[2018-08-20] MEDS ORDERED: IBUPROFEN 400 MG TAB PO PRN (23:42)
[2018-08-20] MEDS ORDERED: ONDANSETRON 4 MG/2 ML VIAL IVP PRN (23:42)
[2018-08-20] MEDS ORDERED: MORPHINE SULFATE 4 MG/ML SYRINGE IV PRN (23:42)
[2018-08-20] MEDS ORDERED: NON-FORMULARY DRUG (Omeprazole 40 MG) PO SCH (23:45)
[2018-08-21] MEDS: SODIUM CHLORIDE 0.9% 1,000 ML IV SCH ×3 (00:03→18:07)
--- NOTE | 2018-08-21 00:39 | P.HPIM ---
History of Present Illness H&P Date: 08/21/18 Patient is a 77-year-old male with a PMH of diabetes mellitus (diet-controlled) , hyperlipidemia, gout, history of stomach CA and multiple hernias requiring several abdominal surgeries, presented to the ED due to generalized weakness, and nonproductive cough. The history was supplemented by his at the bedside. The patient notes that he was in his usual state of health until a trip to [place] 3 weeks ago at which point he began to feel weak and was unable to ambulate with his walker as he previously did. He also endorsed having a nonproductive cough which gradually worsened along with having difficulty swallowing the past few weeks. He otherwise denied fever, chills, chest pain, shortness of breath, nausea, or diaphoresis. He also denied abdominal pain, vomiting, diarrhea, recent travel, or sick contacts. The patient underwent a comprehensive workup in the emergency room, with WBC count 8.9, hemoglobin 11.6, BUN 33, creatinine 1.10, CK 171, EKG showing normal sinus rhythm at 97 bpm, and chest x-ray showing a right lung patchy pneumonia. Review of Systems Pertinent positives and negatives as discussed in HPI, a complete review of systems was performed and all other systems are negative. Past Medical History Past Medical History: Cancer, Diabetes Mellitus, Deep Vein Thrombosis (DVT), GERD/Reflux, Hypertension, Osteoarthritis (OA), Skin Disorder, Vascular Disorder Additional Past Medical History / Comment(s): BOWEL CA (1989) -STATES DUODENOM AND 1/3 OF STOMACH WAS REMOVED., HX PERITONITIS- (POSS R/T MESH IN HERNIA). 2 ABD HERNIAS CURRENTLY. HX OF EDISON-N-Y WITH APPROX. 200 # WT LOSS., EXCESS SKIN. , GOUT. PAD., ARTHRITIS IN RIGHT KNEE, HIPS & HANDS., HX OF ULCERS IN ESOPHAGUS & STOMACH. HEMORRHOIDS., USES CANE., STATES PERIODS OF APNEA WHEN SLEEPING AND POST-OP. , HAS NON HEALING WOUND ON ABDOMEN THAT HE APPLIES SKIN BARRIER & BANDAIDS. BACK PAIN., , STATES HAVING BLACK STOOLS AND DIARRHEA.-SEES DR OLIVA TODAY. History of Any Multi-Drug Resistant Organisms: None Reported Past Surgical History: Back Surgery, Bariatric Surgery, Bowel Resection, Hernia Repair, Joint Replacement, Orthopedic Surgery Additional Past Surgical History / Comment(s): MULT HERNIA'S REPAIRED; SURGERY DUE TO PERITONITIS, BACK SURG X2, CERVICAL fusion . TOTAL LEFT KNEE , GASTRIC EDISON-N-Y 2006. angela CATARACTS. Left Shoulder surgery., BALLOON ANGIOPLASTY RIGHT ANT. TIBIAL ARTERY (12/15/16) Past Anesthesia/Blood Transfusion Reactions: No Reported Reaction Additional Past Anesthesia/Blood Transfusion Reaction / Comment(s): PTS STATES PERIOD OF APNEA POST OP AND WHEN HE SLEEPS AT HOME. Past Psychological History: No Psychological Hx Reported Smoking Status: Former smoker Past Alcohol Use History: Occasional Past Drug Use History: None Reported - Past Family History Sister(s) Family Medical History: Cancer Brother(s) Family Medical History: Cancer, CVA/TIA Additional Family Medical History / Comment(s): STATES 2 BROTHER HAD STROKES AFTER CAROTID SURGERY Medications and Allergies Home Medications Medication Instructions Recorded Confirmed Type Ferrous Sulfate [Iron (65 MG 325 mg PO DAILY 10/13/16 08/20/18 History Elemental)] Furosemide [Lasix] 40 mg PO DAILY 10/13/16 08/20/18 History Multivit-Min/FA/Lycopen/Lutein 1 each PO DAILY 10/13/16 08/20/18 History [Centrum Silver Men Tablet] Omeprazole [PriLOSEC] 40 mg PO Q24H #30 capsule. 03/05/17 08/20/18 Rx Febuxostat [Uloric] 80 mg PO DAILY 08/20/18 08/20/18 History Gabapentin [Neurontin] 300 mg PO TID 08/20/18 08/20/18 History HYDROcodone/APAP 5-325MG [[place] 1 tab PO QID 08/20/18 08/20/18 History 5-325] Tart Hendrickson (Unknown) 1 dose PO DAILY 08/20/18 08/20/18 History Allergies Allergy/AdvReac Type Severity Reaction Status Date / Time adhesive tape AdvReac TAKES SKIN Verified 08/20/18 21:29 OFF, (PAPER TAPE OK) Physical Exam Vitals: Vital Signs Temp Pulse Resp BP Pulse Ox 08/20/18 23:46 97.4 F L 93 16 117/53 98 08/20/18 22:09 89 16 104/50 98 08/20/18 20:53 20 08/20/18 20:50 98.8 F 100 18 112/67 95 08/20/18 18:37 97.5 F L 107 H 20 175/50 99 Intake and Output 08/20/18 08/20/18 08/21/18 14:59 22:59 06:59 Other: Weight 107.048 kg General: [non toxic], [no distress], [appears at stated age], [morbidly obese] Derm: [Left leg circumferential area of scaling and mild induration] [no unusual ecchymoses], [warm], [dry] Head: [atraumatic], [normocephalic], [symmetric] Eyes: [EOMI], [no lid lag], [anicteric sclera], [pupils equal round reactive to light] ENT: [Nose and ears atraumatic], [no thrush], [no pharyngeal erythema] Neck: [No thyromegaly], [no cervical lymphadenopathy], [trachea midline], [ supple] Mouth: [no lip lesion], [mucus membranes moist] Cardiovascular: [S1S2 reg], [no murmur], [positive posterior tibial pulse bilateral], [2+ pitting edema bilateral lower extremities], [capillary refill less than 2 seconds] Lungs: [Mild scattered rhonchi, no rales] , [no accessory muscle use] Abdominal: [soft], nontender to palpation, left lower quadrant large hernia Ext: [no gross muscle atrophy], [muscle strength 4 out of 5 in all 4 extremities grossly], [no contractures], Neuro: [ CN II-XI grossly intact], [light touch intact all 4 extremities], [ finger to nose within normal limits], Psych: [Alert], [oriented], [appropriate affect] Results CBC & Chem 7: 08/20/18 20:25 08/20/18 20:25 Labs: Abnormal Lab Results - Last 24 Hours (Table) 08/20/18 08/20/18 08/20/18 Range/Units 20:25 20:25 20:25 RBC 3.75 L (4.30-5.90) m/uL Hgb 11.6 L (13.0-17.5) gm/dL Hct 36.1 L (39.0-53.0) % Neutrophils # (Manual) 8.30 H (1.3-7.7) k/uL Lymphocytes # (Manual) 0.36 L (1.0-4.8) k/uL Sodium 136 L (137-145) mmol/L BUN 33 H (9-20) mg/dL Glucose 145 H (74-99) mg/dL Magnesium 1.4 L (1.6-2.3) mg/dL Total Creatine Kinase 171 H (55-170) U/L Albumin 3.3 L (3.5-5.0) g/dL Assessment and Plan Plan: Community acquired pneumonia -Continue with azithromycin and ceftriaxone -IV fluids Generalized weakness, deconditioning -Rehab consult Difficulty swallowing, with chronic cough, risk of aspiration -Speech and swallow evaluation Large left lower quadrant hernia -Patient follows with Dr. Andersen -Asymptomatic at this time Anemia of chronic disease -Stable Hypomagnesemia -Will replace and monitor DVT//GI prophylaxis -Heparin -Protonix The patient is admitted with an anticipated greater than 2 midnight stay for evaluation of pneumonia. CODE STATUS: Full code Discussed with: Patient, Anticipated discharge date: 08/22/[address]: Subacute rehab A total of 60 minutes was spent on the care of this complex patient more than 50 % of the time was spent in counseling and care coordination.
[2018-08-21 01:18] VITALS: BMI 47.2
[2018-08-21] MEDS: MAGNESIUM SULFATE-D5W PMX 1 GM in DEXTROSE/WATER 1 100ML.BAG IVPB SCH ×2 (01:54→03:58)
[2018-08-21] MEDS ORDERED: GABAPENTIN 300 MG CAP PO STA (02:09)
[2018-08-21] MEDS ORDERED: ALPRAZolam 0.25 MG TAB PO STA (02:09)
[2018-08-21 02:12] LABS: Appearance,Urine Clear (Clear); Bilirubin,Urine Negative (Negative); Blood,Urine Negative (Negative); Color,Urine Yellow; Glucose,Urine (UA) Negative (Negative); Ketones,Urine Negative (Negative); Leukocyte Esterase,Urine Negative (Negative); Nitrite,Urine Negative (Negative); Protein,Urine Negative (Negative); Specific Gravity,Urine 1.013 (1.001-1.035); Urobilinogen,Urine <2.0 mg/dL (<2.0)
[2018-08-21] MEDS: HYDROcodone/APAP 5-325MG 1 EACH TAB PO PRN ×2 (02:24→20:27)
[2018-08-21] MEDS: GABAPENTIN 300 MG CAP PO SCH ×3 (08:47→20:23)
[2018-08-21] MEDS: FERROUS SULFATE 325 MG TAB PO SCH (08:47)
[2018-08-21] MEDS: PANTOPRAZOLE 40 MG/10 ML VIAL IV SCH (08:48)
[2018-08-21] MEDS: HEPARIN SODIUM,PORCINE 5,000 UNIT/ML 1 ML VIAL SQ SCH ×2 (08:48→15:23)
[2018-08-21] MEDS: FUROSEMIDE 40 MG TAB PO SCH (08:48)
[2018-08-21] MEDS ORDERED: ALLOPURINOL 100 MG TAB PO SCH (09:00)
[2018-08-21] MEDS ORDERED: TART CHERRY PO SCH (09:00)
[2018-08-21] MEDS ORDERED: HYDROcodone/APAP 5-325MG 1 EACH TAB PO SCH (09:00)
[2018-08-21] MEDS ORDERED: LUTEIN PO SCH (09:00)
[2018-08-21] MEDS ORDERED: [UNRECOGNIZED DRUG - OTHER] PO SCH (09:00)
[2018-08-21] MEDS ORDERED: LYCOPEN PO SCH (09:00)
[2018-08-21] MEDS ORDERED: MULTIVIT MIN PO SCH (09:00)
[2018-08-21 09:55] LABS: HCT 31.9 % (39.0-53.0); Hypochromasia Moderate; MCH 30.1 pg (25.0-35.0); MCHC 30.4 g/dL (31.0-37.0); Mean Platelet Volume 8.2; Platelet Count 154 k/uL (150-450); RBC 3.22 m/uL (4.30-5.90); WBC 10.3 k/uL (3.8-10.6)
[2018-08-21] MEDS ORDERED: MD COMMUNICATION TO PHARMACY 1 EACH MISC PO PRN (10:00)
[2018-08-21 10:02] LABS: Calcium 8.2 mg/dL (8.4-10.2); HGB 9.7 gm/dL (13.0-17.5); Magnesium 2.1 mg/dL (1.6-2.3); Potassium 4.4 mmol/L (3.5-5.1)
[2018-08-21] MEDS: ULORIC 80 MG PO SCH (10:24)
[2018-08-21 15:33] VITALS: RESP 18
--- NOTE | 2018-08-21 16:36 | P.PN ---
Subjective Progress Note Date: 08/21/18 Principal diagnosis: Shortness of breath Patient is a 77-year-old male past medical history at all diabetes mellitus, dyslipidemia, gout, hemorrhoids, and chronic back pain who presented to the ER with complaints of weakness and nonproductive cough. In the ER he underwent extensive evaluation. His white blood cell count was normal at 8.9, chest x-ray showed a right lung pneumonia. Laboratory analysis was consistent with his chronic anemia and hypomagnesemia. He was started on IV fluids, antibiotics, bronchodilators, and magnesium replacement. He is admitted for further monitoring and care. Patient seen and examined at bedside. He is feeling much better than yesterday. His weakness is slowly improving. His breathing is much better. He denies any nausea, vomiting, or diarrhea. He states at home he walks with a walker and has been feeling weak. He is still having a cough which is nonproductive. Scheduled for knee replacement in 2 weeks at [facility]. Objective - Vital Signs Vital signs: Vital Signs Temp 98.4 F 08/21/18 06:39 Pulse 78 08/21/18 06:39 Resp 14 08/21/18 06:39 BP 112/62 08/21/18 06:39 Pulse Ox 95 08/21/18 06:39 Intake & Output 08/20/18 08/21/18 08/21/18 18:59 06:59 18:59 Intake Total 100 Output Total 300 Balance -200 Weight 107.048 kg 111 kg Intake: Oral 100 Output: Urine 300 - Exam General: Ill appearing, no distress, appears at stated age, obese Derm: warm, dry Head: atraumatic, normocephalic, symmetric Eyes: EOMI, no lid lag, anicteric sclera Mouth: no lip lesion, mucus membranes moist Cardiovascular: S1S2 reg, no murmur, positive posterior tibial pulse bilateral, Lungs: Wheeze right base, no accessory muscle use Abdominal: soft, nontender to palpation, no guarding, no appreciable organomegaly Ext: no gross muscle atrophy, no edema, no contractures Neuro: CN II-XI grossly intact, no focal neuro deficits Psych: Alert, oriented, appropriate affect - Labs CBC & Chem 7: 08/21/18 09:02 08/21/18 09:02 Labs: Abnormal Lab Results - Last 24 Hours (Table) 02/08/20/18 08/20/18 Range/Units 20:25 20:25 20:25 RBC 3.75 L (4.30-5.90) m/uL Hgb 11.6 L (13.0-17.5) gm/dL Hct 36.1 L (39.0-53.0) % Neutrophils # (Manual) 8.30 H (1.3-7.7) k/uL Lymphocytes # (Manual) 0.36 L (1.0-4.8) k/uL Sodium 136 L (137-145) mmol/L BUN 33 H (9-20) mg/dL Glucose 145 H (74-99) mg/dL Magnesium 1.4 L (1.6-2.3) mg/dL Total Creatine Kinase 171 H (55-170) U/L Albumin 3.3 L (3.5-5.0) g/dL Assessment and Plan Assessment: Community-acquired pneumonia -Continue with Zithromax, Rocephin -Bronchodilators -Chest x-ray until clear -IV fluids -Sputum culture if able to obtain Generalized weakness and deconditioning -PT/OT evaluation -Encourage ambulation -Fall precautions -Likely related to above in addition to knee replacement scheduled soon. Difficulty swallowing -Bedside swallow evaluation was normal per nursing graph Anemia of chronic disease, at or near baseline -Follow CBC -Continue outpatient follow-up Large left lower quadrant hernia -Continue outpatient follow-up with Dr. Andersen Diabetes mellitus type 2, diet controlled -Accu-Cheks, sliding scale insulin -Check hemoglobin A1c Hypertension, controlled -Continue with metoprolol -Follow blood pressures Gout -Patient continue to tradeshow worker Hypomagnesemia, resolved Chronic conditions: -Esophageal cancer, prior -GERD -History of DVT DVT prophylaxis: Heparin Discussed with: Patient, nursing Anticipated discharge: 1-[address]: Home with home health A total of 25 minutes was spent on the care of this complex patient more than 50 % of the time was spent in counseling and care coordination.
[2018-08-21 17:11] LABS: Glucose,Whole Blood 203 mg/dL (75-99)
[2018-08-21] MEDS: INSULIN ASPART (NovoLOG) 100 UNIT/ML VIAL SQ SCH ×2 (18:07→21:30)
[2018-08-21 21:00] LABS: Glucose,Whole Blood 123 mg/dL (75-99)
[2018-08-21] MEDS ORDERED: AZITHROMYCIN 250 MG TAB PO SCH (21:00)
[2018-08-22] MEDS: HEPARIN SODIUM,PORCINE 5,000 UNIT/ML 1 ML VIAL SQ SCH ×2 (00:04→08:14)
[2018-08-22] MEDS: SODIUM CHLORIDE 0.9% 1,000 ML IV SCH (06:38)
[2018-08-22 07:17] LABS: Glucose,Whole Blood 115 mg/dL (75-99)
[2018-08-22 07:28] VITALS: BP 133/53; PULSE 99; TEMP 100.8
[2018-08-22] MEDS: INSULIN ASPART (NovoLOG) 100 UNIT/ML VIAL SQ SCH ×2 (08:12→12:56)
[2018-08-22] MEDS: PANTOPRAZOLE 40 MG/10 ML VIAL IV SCH (08:13)
[2018-08-22] MEDS: FUROSEMIDE 40 MG TAB PO SCH (08:13)
[2018-08-22] MEDS: FERROUS SULFATE 325 MG TAB PO SCH (08:13)
[2018-08-22] MEDS: GABAPENTIN 300 MG CAP PO SCH (08:14)
[2018-08-22] MEDS: ULORIC 80 MG PO SCH (08:15)
[2018-08-22 09:21] LABS: HCT 28.8 % (39.0-53.0); HGB 9.1 gm/dL (13.0-17.5); Hypochromasia Slight; MCHC 31.7 g/dL (31.0-37.0); MCV 97.7 fL (80.0-100.0); Mean Platelet Volume 8.4; Platelet Count 126 k/uL (150-450); RBC 2.94 m/uL (4.30-5.90); WBC 7.6 k/uL (3.8-10.6)
[2018-08-22 09:48] LABS: Calcium 8.2 mg/dL (8.4-10.2); Potassium 4.4 mmol/L (3.5-5.1)
[2018-08-22 12:07] LABS: Glucose,Whole Blood 166 mg/dL (75-99)
--- NOTE | 2018-08-22 16:37 | P.DS ---
Providers Date of admission: 08/20/18 23:41 Expected date of discharge: 08/22/18 Attending physician: Vinayak Burgess MD Primary care physician: Brody Swift [facility] Course: Discharge Diagnosis: Community-acquired pneumonia Generalized weakness Diabetes mellitus type 2 diet-controlled Hypertension Anemia of chronic disease Left lower quadrant hernia Gout Hypomagnesemia Morbid obesity with BMI 44.8 Chronic lower extremity edema Hospital Course: Patient is a 77-year-old male past medical history at all diabetes mellitus, dyslipidemia, gout, hemorrhoids, and chronic back pain who presented to the ER with complaints of weakness and nonproductive cough. In the ER he underwent extensive evaluation. His white blood cell count was normal at 8.9, chest x-ray showed a right lung pneumonia. Laboratory analysis was consistent with his chronic anemia and hypomagnesemia. He was started on IV fluids, antibiotics, bronchodilators, and magnesium replacement. He was admitted for further monitoring and care. He is maintained on Rocephin and Zithromax. He progressed well. By the morning of 08/22 he was up and ambulating in the hallways and his breathing had improved significantly. He was determined stable for discharge home. He will complete a five-day course of Zithromax and Rocephin. I've asked him to have a repeat chest x-ray completed when he follows with Dr. Swift next week. He was subsequently discharged home in stable condition. Patient seen and examined at bedside. Breathing is much improved, weakness much improved, no nausea, vomiting, or diarrhea. Feeling much improved and would like to go home. Vital signs reviewed and stable. General: non toxic, no distress, appears at stated age Derm: warm, dry Head: atraumatic, normocephalic, symmetric Eyes: EOMI, no lid lag, anicteric sclera Mouth: no lip lesion, mucus membranes moist Cardiovascular: S1S2 reg, no murmur, positive posterior tibial pulse bilateral, Lungs: Right base, no rhonchi, no rales , no accessory muscle use Abdominal: soft, nontender to palpation, no guarding, no appreciable organomegaly Ext: no gross muscle atrophy, 3+ edema, no contractures Neuro: CN II-XI grossly intact, no focal neuro deficits Psych: Alert, oriented, appropriate affect A total of 37 minutes of time were spent preparing this complex discharge summary . Pertinent Studies: CXR- PNA right lung Patient Condition at Discharge: Stable Plan - Discharge Summary Discharge Rx Participant: No New Discharge Prescriptions: New Azithromycin [Zithromax] 250 mg PO Q24H #4 tab Cefpodoxime Proxetil [Vantin] 200 mg PO Q12HR #8 tab Continue Multivit-Min/FA/Lycopen/Lutein [Centrum Silver Men Tablet] 1 each PO DAILY Ferrous Sulfate [Iron (65 MG Elemental)] 325 mg PO DAILY Furosemide [Lasix] 40 mg PO DAILY Omeprazole [PriLOSEC] 40 mg PO Q24H #30 capsule. Febuxostat [Uloric] 80 mg PO DAILY HYDROcodone/APAP 5-325MG [[facility] 5-325] 1 tab PO QID Tart Hendrickson (Unknown) 1 dose PO DAILY Gabapentin [Neurontin] 300 mg PO TID Discharge Medication List Ferrous Sulfate [Iron (65 MG Elemental)] 325 mg PO DAILY 10/13/16 [History] Furosemide [Lasix] 40 mg PO DAILY 10/13/16 [History] Multivit-Min/FA/Lycopen/Lutein [Centrum Silver Men Tablet] 1 each PO DAILY 10/13 [History] Omeprazole [PriLOSEC] 40 mg PO Q24H #30 capsule. 03/05/17 [Rx] Febuxostat [Uloric] 80 mg PO DAILY 08/20/18 [History] Gabapentin [Neurontin] 300 mg PO TID 08/20/18 [History] HYDROcodone/APAP 5-325MG [[facility] 5-325] 1 tab PO QID 08/20/18 [History] Tart Hendrickson (Unknown) 1 dose PO DAILY 08/20/18 [History] Azithromycin [Zithromax] 250 mg PO Q24H #4 tab 08/22/18 [Rx] Cefpodoxime Proxetil [Vantin] 200 mg PO Q12HR #8 tab 08/22/18 [Rx] Follow up Appointment(s)/Referral(s): Brody Swift MD [Primary Care Provider] - 1-2 days Activity/Diet/Wound Care/Special Instructions: Heart healthy diet Activity as tolerated Please make follow up appointment with Dr. Swift Recommended repeat chest xray when seen by Dr. Swift Discharge Disposition: HOME SELF-CARE
== END 2018-08-22 15:40 | disposition home or self-care (01) | DRG 194 ==
LOC: EC 18:25 → 4MS4W 23:41
PROVIDERS: ADMIT Internal Medicine; ATTEND Internal Medicine
DX: J18.9 Pneumonia, unspecified organism (principal); Z68.41 Body mass index [BMI] 40.0-44.9, adult; Z85.01 Personal history of malignant neoplasm of esophagus; D63.8 Anemia in other chronic diseases classified elsewhere; E11.9 Type 2 diabetes mellitus without complications; E66.01 Morbid (severe) obesity due to excess calories; E78.5 Hyperlipidemia, unspecified; E83.42 Hypomagnesemia; I10 Essential (primary) hypertension; K21.9 Gastro-esophageal reflux disease without esophagitis; M10.9 Gout, unspecified; M17.11 Unilateral primary osteoarthritis, right knee; R13.10 Dysphagia, unspecified; Z79.899 Other long term (current) drug therapy; Z82.3 Family history of stroke; Z85.028 Personal history of other malignant neoplasm of stomach; Z85.038 Personal history of other malignant neoplasm of large intestine; Z86.718 Personal history of other venous thrombosis and embolism; Z87.19 Personal history of other diseases of the digestive system; Z87.891 Personal history of nicotine dependence; Z96.652 Presence of left artificial knee joint; M16.0 Bilateral primary osteoarthritis of hip; M19.042 Primary osteoarthritis, left hand; M19.041 Primary osteoarthritis, right hand; Z98.1 Arthrodesis status; R60.0 Localized edema; Z98.42 Cataract extraction status, left eye; Z98.41 Cataract extraction status, right eye; G89.29 Other chronic pain; M54.9 Dorsalgia, unspecified; K46.9 Unspecified abdominal hernia without obstruction or gangrene; Z87.11 Personal history of peptic ulcer disease; G47.30 Sleep apnea, unspecified
CPT/HCPCS: 36415; 71046; 80048; 80053; 81003; 82272; 82550; 82553; 83036; 83605; 83690; 83735; 84484; 85025; 85027; 85610; 85730; 86850; 86900; 86901; 87040; 93005; 96360; 96361; 99285

== ENCOUNTER → 2019-03-04 | Outpatient (CLI) | payer MEDICARE ==
--- NOTE | 2019-03-04 13:44 | US ---
EXAMINATION TYPE: US kidneys/renal and bladder DATE OF EXAM: 03/04/2019 COMPARISON: NONE CLINICAL HISTORY: 78-year-old male N18.3 CKD Stage 3. TECHNIQUE: Multiple sonographic images of the kidneys and bladder are obtained. FINDINGS: EXAM MEASUREMENTS: Right Kidney: 10.2 x 4.4 x 4.6 cm Left Kidney: 10.3 x 5.3 x 5.4 cm English Professor notes: Patient of large body habitus with large abdomen. Technically difficult. Right Kidney: cortical thinning. No hydronephrosis after reviewing all of the right kidney images. Left Kidney: cortical thinning, cyst measuring 2.0 x 1.8 x 1.7cm there is no hydronephrosis. Bladder: limited visualization due to large panniculus, wnl as visualized IMPRESSION: 1. Cortical thinning suggests chronic medical renal disease. 2. No hydronephrosis identified. 3. Suboptimal visualization of the bladder.
== END | disposition home or self-care (01) ==
LOC: RADUSWWP 10:21
PROVIDERS: ATTEND Family Medicine
DX: N18.3 Chronic kidney disease, stage 3 (moderate) (principal)
CPT/HCPCS: 76770

== ENCOUNTER → 2019-12-06 | Outpatient (CLI) | payer MEDICARE | END | disposition home or self-care (01) | LOC: RADUSWWP 13:05 | PROVIDERS: ATTEND Family Medicine | DX: Z53.9 Procedure and treatment not carried out, unspecified reason (principal) ==

== ENCOUNTER → 2020-06-25 | Outpatient (CLI) | payer MEDICARE ==
--- NOTE | 2020-06-25 13:22 | US ---
EXAMINATION TYPE: US abdomen complete DATE OF EXAM: 06/25/2020 COMPARISON: US 2019, CT 2017 CLINICAL HISTORY: T14.8XXD Seroma. Bloating EXAM MEASUREMENTS: Liver Length: 16.5 cm Gallbladder Wall: 0.2 cm CBD: 0.3 cm Spleen: 12.6 cm Right Kidney: 10.6 x 6.0 x 4.9 cm Left Kidney: 10.6 x 6.0 x 6.0 cm Difficult and limited study due to morbidly obese patient Pancreas: obscured by overlying midline bowel gas Liver: wnl Gallbladder: cholelithiasis Evidence for sonographic Gifford's sign: no CBD: wnl Spleen: wnl Right Kidney: cortical thinning Left Kidney: cortical thinning, 2.1cm cystic area lateral mid pole Upper IVC: wnl Abd Aorta: obscured by overlying midline bowel gas The liver is homogenous. The intrahepatic portion of the IVC and proximal abdominal aorta are within normal limits. Common bile duct is unremarkable. The visualized portions of the pancreas are homog enous. The spleen is unremarkable. Kidneys are symmetric and free of hydronephrosis. No renal lesi ons are seen. IMPRESSION: cholelithiasis
== END | disposition home or self-care (01) ==
LOC: RADUSWWP 12:22
PROVIDERS: ATTEND Family Medicine
DX: K80.20 Calculus of gallbladder without cholecystitis without obstruction (principal)
CPT/HCPCS: 76700

== ENCOUNTER → 2020-09-06 | Outpatient (CLI) | payer MEDICARE ==
--- NOTE | 2020-09-12 09:56 | P.ARTDOP ---
Arterial Doppler LOWER EXTREMITY ARTERIAL DOPPLER: DATE OF SERVICE: 09/06/2020 Reason for study: Left calf ulcer. Doppler waveforms: Multiphasic at the right femoral and monophasic below. Atypical at the left femoral and below.. Pulse volume recording: []. Pressure gradients: Bilaterally.. Ankle-brachial indices: 0.62 on the right and 0.64 on the left. Toe brachial indices: [] on the right, [] on the left Impression: Moderate bilateral fem-pop disease. Suggests left iliac component. Vascular specialty consult recommended..
== END | disposition home or self-care (01) ==
LOC: RADUSWWP 07:53
PROVIDERS: ATTEND Family Medicine
DX: I77.89 Other specified disorders of arteries and arterioles (principal)
CPT/HCPCS: 93922